=== PATIENT | male | born 1960 | race Caucasian/White ===

== ENCOUNTER 2018-10-01 08:51 | Day surgery (SDC) | payer BC ==
[~2018-10-01] VITALS: Ht 172.7 cm; Wt 86.1 kg
[~2018-10-01 08:51] MED LIST: LO-DOSE ASPIRIN81 MG; METF500C; METO50ER; RAMI2.5
== END 2018-10-01 11:29 | disposition home or self-care (01) ==
LOC: ORSCSDS 08:51
PROVIDERS: Student in an Organized Health Care Education/Training Program
PROC: 0DBK8ZX Excision of Ascending Colon, Via Natural or Artificial Opening Endoscopic, Diagnostic (ICD-10-PCS; principal; 2018-10-01 10:15)
PROC: 0DBN8ZX Excision of Sigmoid Colon, Via Natural or Artificial Opening Endoscopic, Diagnostic (ICD-10-PCS; principal; 2018-10-01 10:15)
PROC: 0DBH8ZX Excision of Cecum, Via Natural or Artificial Opening Endoscopic, Diagnostic (ICD-10-PCS; principal; 2018-10-01 10:15)
PROC: 0DBM8ZX Excision of Descending Colon, Via Natural or Artificial Opening Endoscopic, Diagnostic (ICD-10-PCS; principal; 2018-10-01 10:15)
PROC: 0DBL8ZX Excision of Transverse Colon, Via Natural or Artificial Opening Endoscopic, Diagnostic (ICD-10-PCS; principal; 2018-10-01 10:15)
DX: Z12.11 Encounter for screening for malignant neoplasm of colon (principal); D12.4 Benign neoplasm of descending colon; D12.2 Benign neoplasm of ascending colon; D12.3 Benign neoplasm of transverse colon; D12.5 Benign neoplasm of sigmoid colon; D12.0 Benign neoplasm of cecum; K57.30 Diverticulosis of large intestine without perforation or abscess without bleeding; E11.9 Type 2 diabetes mellitus without complications; I10 Essential (primary) hypertension; F17.210 Nicotine dependence, cigarettes, uncomplicated; Z79.84 Long term (current) use of oral hypoglycemic drugs; Z79.899 Other long term (current) drug therapy
CPT/HCPCS: 82947; 88305; J2704; J7120

== ENCOUNTER 2019-05-13 06:36 | Day surgery (SDC) | payer BC ==
[~2019-05-13] VITALS: Ht 172.7 cm; Wt 89.0 kg
[~2019-05-13 06:36] MED LIST changes: +RAMI2.5 PO
--- NOTE | 2019-05-13 12:59 | NUR ---
05/13/19 1259 Renetta Meneses DISCHARGE INSTRUCTIONS REVIEWED WITH PT AND SPOUSE. PT TOLERATING PO FLUIDS WELL, HAS NO CONCERNS AND VSS.
== END 2019-05-13 12:05 | disposition home or self-care (01) ==
LOC: ORSCSDS 06:36
PROVIDERS: Student in an Organized Health Care Education/Training Program
PROC: 0DBC8ZX Excision of Ileocecal Valve, Via Natural or Artificial Opening Endoscopic, Diagnostic (ICD-10-PCS; principal; 2019-05-13 08:00)
PROC: 0DBK8ZX Excision of Ascending Colon, Via Natural or Artificial Opening Endoscopic, Diagnostic (ICD-10-PCS; principal; 2019-05-13 08:00)
PROC: 0DBL8ZX Excision of Transverse Colon, Via Natural or Artificial Opening Endoscopic, Diagnostic (ICD-10-PCS; principal; 2019-05-13 08:00)
DX: Z12.11 Encounter for screening for malignant neoplasm of colon (principal); Z86.010 Personal history of colon polyps; D12.2 Benign neoplasm of ascending colon; D12.3 Benign neoplasm of transverse colon; D12.0 Benign neoplasm of cecum; K57.30 Diverticulosis of large intestine without perforation or abscess without bleeding; K64.8 Other hemorrhoids; K64.4 Residual hemorrhoidal skin tags; E11.9 Type 2 diabetes mellitus without complications; I10 Essential (primary) hypertension; Z79.899 Other long term (current) drug therapy; Z79.84 Long term (current) use of oral hypoglycemic drugs; F17.210 Nicotine dependence, cigarettes, uncomplicated; Z79.82 Long term (current) use of aspirin
CPT/HCPCS: 82947; 88305; J0330; J0461; J2001; J2405; J2704; J7040; J7120

== ENCOUNTER → 2019-08-06 | Outpatient (CLI) | payer BC ==
[2019-08-06 14:27] LABS: BASOPHILS ABSOLUTE AUTO 0.02 K/mm3 (0.00-0.23); BASOPHILS PERCENT AUTO 0 % (0-2); EOSINOPHILS ABSOLUTE AUTO 0.11 K/mm3 (0.00-0.68); EOSINOPHILS PERCENT AUTO 2 % (0-6); Hematocrit 43.4 % (37.0-53.0); Hemoglobin 15.2 g/dL (13.5-17.5); IMMATURE GRAN ABSOLUTE AUTO 0.06 K/mm3 (0.00-0.10); IMMATURE GRAN PERCENT AUTO 1 % (0-1); LYMPHOCYTES PERCENT AUTO 27 % (21-46); MONOCYTES ABSOLUTE AUTO 0.71 K/mm3 (0.16-1.47); MONOCYTES PERCENT AUTO 10 % (4-13); Mean Corpuscular HGB 32.5 pg (26.0-34.0); Mean Corpuscular Volume 93 fL (80-100); Mean Platelet Volume 10.7 fL (9.1-12.4); NEUTROPHILS ABSOLUTE AUTO 4.39 K/mm3 (1.96-9.15); NEUTROPHILS PERCENT AUTO 60 % (41-73); Platelet Count 185 K/mm3 (150-400); RDW Coefficient Variation 12.1 % (11.7-14.2); RDW Standard Deviation 41.8 fL (35.1-46.3); Red Blood Cell Count 4.67 M/mm3 (4.30-5.90); White Blood Cell Count 7.29 K/mm3 (4.00-11.30)
[2019-08-06 14:37] LABS: Alanine Aminotransfer (ALT/SGP 35 U/L (12-78); Albumin/Globulin Ratio 1.1 (0.8-1.8); Alk Phos 70 U/L (40-126); Anion Gap 9 mmol/L (6-16); Aspartate Aminotrans (AST/SGOT 30 U/L (12-37); Bilirubin, Total 0.5 mg/dL (0.1-1.0); Blood Urea Nitrogen 21 mg/dL (8-24); Bun/Creatinine Ratio 20.6 (12.0-20.0); CO2, Blood 26 mmol/L (21-32); Calcium, Blood 8.4 mg/dL (8.5-10.1); Chloride, Blood 103 mmol/L (98-108); Creatinine, Blood 1.02 mg/dL (0.60-1.20); Globulin, Blood 3.5 g/dL (2.2-4.0); Glomerular Filtration Rate >60 (60-); Glucose, Blood 134 mg/dL (70-99); Potassium, Blood 4.5 mmol/L (3.5-5.5); Sodium, Blood 138 mmol/L (136-145); Total Protein, Blood 7.5 g/dL (6.4-8.2); Troponin I <0.017 ng/mL (0.000-0.040)
== END ==
LOC: LAB SHORT 14:20 → LAB EV 14:20
PROVIDERS: Emergency Medicine
DX: R07.9 Chest pain, unspecified (principal)
CPT/HCPCS: 80053; 84484; 85025

== ENCOUNTER 2021-10-06 07:33 | Observation (INO) | payer BC ==
[~2021-10-06] VITALS: Ht 172.7 cm; Wt 88.6 kg
[~2021-10-06 07:33] MED LIST changes: +ASPI81CH PO; +Amaryl1 MG PO; -METF500C; +METF500C PO; +NAPR500 PO; +PRAV20 PO; +Prozac20 MG PO; +ZESTRIL40 M1 PO
--- NOTE | 2021-10-06 17:29 | NUR ---
PT ARRIVED TO ROOM PCU11 FROM PHARMACEUTICAL COMPOUNDING SUPERVISOR APROX 1330. TR BAND IN PLACE TO R RADIAL SITE, CHECKED WITH PHARMACEUTICAL COMPOUNDING SUPERVISOR RN, SMALL HEMATOMA NOTED AND MARKED PROXIMAL TO THE TR BAND. CONTINUOUS PULSE OX APPLIED TO R HAND TO MONITOR CIRCULATION AND 02 NEEDS. POST PROCEDURE VITALS INTITATED, SEE DOCUMENTATION. PT IS A&OX4, TR BAND WRIST PRECAUTIONS EXPLAINED TO PT WHO VERBALIZES UNDERSTANDING, PT ORIENTED TO ROOM/CALL LIGHT AND UNIT ROUTINES. AIR REMOVED FROM TR BAND PER MD ORDERS, WITH A SMALL AMOUNT OF BLEEDING NOTED. 2CC OF AIR WAS RETURNED TO THE TR BAND AND HEMOSTASIS WAS ACHEIVED. CONTINUED TO DEFLATE THE BAND AFTER 30MINS WIHTOUT COMPLICATION. SMALL HEMATOMA PROXIMAL TO TR BAND HAS NOT INCREASED IN SIZE. TR BAND IS COMPLETELY DEFLATED AT THIS TIME. PT HAS NO CHEST PAIN/PRESSURE OR OTHER COMPLAINTS SINCE ARRIVING TO PCU. CALL LIGHT IN REACH, WILL CONTINUE TO MONITOR AND GIVE REPORT TO ONCOMING RN.
[2021-10-07 04:04] LABS: Hematocrit 40.2 % (37.0-53.0); Hemoglobin 13.6 g/dL (13.5-17.5); Mean Corpuscular HGB 31.9 pg (26.0-34.0); Mean Corpuscular HGB Conc 33.8 g/dL (31.5-36.5); Mean Corpuscular Volume 94 fL (80-100); Mean Platelet Volume 10.3 fL (9.1-12.4); Platelet Count 192 K/mm3 (150-400); RDW Coefficient Variation 12.3 % (11.7-14.2); RDW Standard Deviation 42.7 fL (35.1-46.3); Red Blood Cell Count 4.27 M/mm3 (4.30-5.90); White Blood Cell Count 7.61 K/mm3 (4.00-11.30)
[2021-10-07 04:23] LABS: Bun/Creatinine Ratio 20.6 (12.0-20.0); Calcium, Blood 8.5 mg/dL (8.5-10.1); Creatinine, Blood 0.78 mg/dL (0.60-1.20); Potassium, Blood 4.5 mmol/L (3.5-5.5)
--- NOTE | 2021-10-07 05:49 | NUR ---
NOC SHIFT SUMMARY PT SLEPT WELL OVERNIGHT, ORIENTED X4. NO COMPLAINTS OF PAIN OR DISCOMFORT. VSS PER PT TREND. R RADIAL CATH SIDE CDI. EDUCATED ON POST CATH RESTRICTIONS AND ARM BOARD IN PLACE. WILL CONTINUE TO MONITOR AND PASS ON TO DAY RN
[2021-10-07] MEDS ORDERED: PLAVIX75 MG PO (08:08)
--- NOTE | 2021-10-07 09:30 | NUR ---
DISCHARGE TEACHING COMPLETED INCLUDING MEDICATION LIST, FOLLOW UP APPOINTMENTS, EDUCATION MATERIALS AND RADIAL SITE CARE. PT STATES UNDERSTANDING AND HAS NO FURTHER QUESTIONS OR CONCERNS. PRESCRIPTION CALLED TO PT'S PHARMACY OF CHOICE. IV REMOVED, WNL. ALL BELONGINGS SENT HOME WITH PT. PT TRANSPORTED HOME BY HIS . NO FURTHER DISCHARGE NEEDS IDENTIFIED.
== END 2021-10-07 10:34 | disposition home or self-care (01) ==
LOC: MHTC 07:33 → PCU 12:54 → MHTC 13:36 → PCU 10-07 10:34
PROVIDERS: ADMIT Internal Medicine Interventional Cardiology
DX: I25.10 Atherosclerotic heart disease of native coronary artery without angina pectoris (principal); I10 Essential (primary) hypertension; E11.9 Type 2 diabetes mellitus without complications; E78.5 Hyperlipidemia, unspecified; Z79.82 Long term (current) use of aspirin; Z79.84 Long term (current) use of oral hypoglycemic drugs; Z79.899 Other long term (current) drug therapy
CPT/HCPCS: 36415; 80048; 85027; 85347; 92978; 93458; 99152; 99153; A9270; C1725; C1753; C1769; C1874; C1887; C1894; C9600; C9601; G0378; J1644; J2250; J3010; J7030; J7040; Q9967